=== PATIENT | male | born 1960 | race Hispanic/Latino ===

== ENCOUNTER 2019-03-25 13:33 | Outpatient (CLI) | payer BC ==
--- NOTE | 2019-03-25 13:48 | RAD ---
EXAM: 3 views of the left foot HISTORY: Foot pain COMPARISON: None FINDINGS: 3 views of the left foot shows no evidence of acute fracture or dislocation. No soft tissue swelling is seen. No degenerative changes are present. IMPRESSION: No evidence of acute osseous abnormality.
== END 2019-03-25 13:34 | disposition home or self-care (01) ==
LOC: BICRAD 13:33
PROVIDERS: ATTEND Family Medicine
DX: S99.912A Unspecified injury of left ankle, initial encounter (principal)

== ENCOUNTER 2020-06-19 13:29 | Outpatient (CLI) | payer MEDICARE ==
--- NOTE | 2020-06-19 14:05 | RAD ---
Exam:Left foot 3 views HISTORY: Pain COMPARISON: 03/25/2019 FINDINGS: No symmetric and soft tissue swelling. Hypertrophy of the calcaneus at the plantar aponeuro sis and Achilles tendon insertion sites. Lisfranc alignment is maintained. No fracture, cortical irregularity or periosteal reaction. Mild deg enerative change in the first metatarsal phalangeal joint space. IMPRESSION: No fracture. Chronic changes as described above.
--- NOTE | 2020-06-19 14:10 | RAD ---
LEFT ANKLE 3 VIEWS: Date: 06/19/2020 HISTORY: Ankle pain. FINDINGS: Mild soft tissue swelling at the ankle. There are degenerative changes with spurring at the tibiotala r joint and spurring from both malleoli. No evidence of acute fracture. IMPRESSION: Degenerative changes at the ankle. No evidence of fracture. POS: [facility]
== END 2020-06-19 13:30 | disposition home or self-care (01) ==
LOC: BICRAD 13:29
PROVIDERS: ATTEND Podiatrist
DX: M79.672 Pain in left foot (principal); M25.572 Pain in left ankle and joints of left foot; M19.072 Primary osteoarthritis, left ankle and foot; M89.372 Hypertrophy of bone, left ankle and foot

== ENCOUNTER 2020-11-21 00:16 | Inpatient (IN) | payer MEDICARE ==
[2020-11-21 01:05] LABS: #Basophils 0.1 thou/uL (0.0-0.2); #Eosinphils 0.1 thou/uL (0.0-0.7); #Monocytes 0.9 thou/uL (0.11-0.59); #Neutrophils 7.4 thou/uL (1.40-6.50); %Basophils 0.9 % (0.0-1.0); %Eosinophils 0.9 % (0.0-10.0); %Lymphocytes 31.9 % (21.0-51.0); %Monocytes 6.9 % (0.0-10.0); %Neutrophils 59.4 % (42.0-75.0); Hemoglobin 13.5 g/dL (14.0-18.0); Mean Corpuscular HGB CONC 34.6 g/dL (32.0-36.0); Mean Corpuscular Volume 86.6 fL (78.0-98.0); Mean Platelet Volume 6.9 fL (7.4-10.4); Platelet Count 341 thou/uL (130-400); RBC Distribution Width 12.4 % (11.5-14.5); Red Blood Cell (RBC) Count 4.52 mill/uL (4.70-6.10); White Blood Cell (WBC) Count 12.4 thou/uL (4.8-10.8)
[2020-11-21 01:22] LABS: ALT (SGPT) 23 U/L (8-55); AST (SGOT) 35 U/L (5-34); Albumin 4.5 g/dL (3.4-4.8); Alkaline Phosphatase 81 U/L (40-110); Anion Gap 18 mmol/L (10-20); BUN (Urea Nitrogen) 10 mg/dL (8.4-25.7); Bilirubin, Total 0.3 mg/dL (0.2-1.2); Calc. Creatinine Clearance 0 mL/min (70-130); Calcium 8.8 mg/dL (7.8-10.44); Carbon Dioxide 19 mmol/L (23-31); Chloride 87 mmol/L (98-107); Globulin 3.2 g/dL (2.4-3.5); Glucose 166 mg/dL (80-115); Potassium 3.8 mmol/L (3.5-5.1); Protein, Total 7.7 g/dL (5.8-8.1); Sodium 120 mmol/L (136-145)
[2020-11-21 01:27] LABS: Acetaminophen Less than 6.0 mcg/mL (10.0-30.0); Alcohol Less than 10 mg/dL (Less than 10); Salicylate Less than 8.0 mg/dL (15.0-30.0)
[2020-11-21] MEDS ORDERED: Lorazepam 1 MG TAB ONE (01:29)
[2020-11-21] MEDS ORDERED: Thiamine HCl 200 MG/2 ML VIAL SLOW IVP SCH (02:30)
[2020-11-21] MEDS ORDERED: Folic Acid 1 MG, Multivitamins, Adult 10 ML in Dextrose 5 %-0.45 % NaCl 1,000 ML IV SCH (02:30)
[2020-11-21] MEDS ORDERED: HYDROcodone/Acetaminophen 5/325 mg Tablet ONE (03:01)
[2020-11-21] MEDS ORDERED: HumaLOG 300 UNITS/3 ML VIAL SC PRN (03:26)
[2020-11-21] MEDS ORDERED: Dextrose 50% Abboject 50 ML SYRINGE SLOW IVP PRN (03:26)
[2020-11-21] MEDS ORDERED: Dextrose 5% in Water 1,000 ML IV PRN (03:26)
[2020-11-21] MEDS ORDERED: Lorazepam 2 MG/ML VIAL ONE ×2 (03:50→06:09)
[2020-11-21 05:23] VITALS: BMI 25.8
[2020-11-21] MEDS ORDERED: Haloperidol Lactate 5 MG/ML VIAL ONE ×2 (05:39→06:42)
[2020-11-21 08:21] LABS: Anion Gap 17 mmol/L (10-20); BUN (Urea Nitrogen) 9 mg/dL (8.4-25.7); Calc. Creatinine Clearance 120 mL/min (70-130); Calcium 8.1 mg/dL (7.8-10.44); Carbon Dioxide 18 mmol/L (23-31); Chloride 87 mmol/L (98-107); Glucose 121 mg/dL (80-115); Potassium 3.3 mmol/L (3.5-5.1)
[2020-11-21 08:36] LABS: Sodium 119 mmol/L (136-145)
[2020-11-21 08:44] LABS: Bacteria/HPF None Seen HPF (None Seen); Bilirubin Negative (Negative); Blood, Urine Negative (Negative); Clarity Clear (Clear); Glucose, Urine (Dipstick) 50 mg/dL (Negative); Ketone, Urine Negative (Negative); Leukocyte Negative Leu/uL (Negative); Nitrite Negative (Negative); Protein, Urine (Dipstick) 10 mg/dL (Neg-Trace); RBC/HPF 0-3 HPF (0-3); Squamous Epithelial 0-3 HPF (0-3); Urobilinogen Normal mg/dL (Less than 2); WBC/HPF 0-3 HPF (0-3); pH, Urine 5.5 (5.0-9.0)
[2020-11-21] MEDS: metFORMIN 500 MG TAB PO SCH ×2 (09:00→17:09)
[2020-11-21] MEDS: Amlodipine 10 MG TAB PO SCH (09:00)
[2020-11-21] MEDS ORDERED: Citalopram 20 MG TAB PO SCH (09:00)
[2020-11-21] MEDS: Cholecalciferol 1,000 UNITS (25 MCG) TAB PO SCH (09:01)
[2020-11-21] MEDS: Gabapentin 300 MG CAP PO SCH (09:01)
[2020-11-21] MEDS: Cyanocobalamin (Vitamin B-12) 1,000 MCG TAB PO SCH (09:01)
[2020-11-21] MEDS: Folic Acid 1 MG TAB PO SCH (09:01)
[2020-11-21] MEDS: Simvastatin 10 MG TAB PO SCH (09:02)
[2020-11-21] MEDS: Multivit, Therapeutic 1 TAB PO SCH (09:02)
[2020-11-21] MEDS ORDERED: Sodium Chloride 0.9% 1,000 ML IV SCH (09:15)
[2020-11-21 12:26] LABS: Anion Gap 11 mmol/L (10-20); BUN (Urea Nitrogen) 7 mg/dL (8.4-25.7); Calc. Creatinine Clearance 113 mL/min (70-130); Calcium 9.3 mg/dL (7.8-10.44); Carbon Dioxide 27 mmol/L (23-31); Chloride 85 mmol/L (98-107); Glucose 103 mg/dL (80-115); Potassium 3.6 mmol/L (3.5-5.1)
[2020-11-21 12:32] LABS: Sodium 119 mmol/L (136-145)
[2020-11-21] MEDS: Sodium Chloride 0.9% 1,000 ML IV SCH ×2 (13:30→21:18)
[2020-11-21 13:42] LABS: SARS-CoV-2 PCR by NAA Not Detected (NotDetected)
[2020-11-21 18:25] LABS: Anion Gap 13 mmol/L (10-20); BUN (Urea Nitrogen) 6 mg/dL (8.4-25.7); Calc. Creatinine Clearance 130 mL/min (70-130); Calcium 8.1 mg/dL (7.8-10.44); Carbon Dioxide 22 mmol/L (23-31); Chloride 89 mmol/L (98-107); Glucose 97 mg/dL (80-115); Potassium 3.7 mmol/L (3.5-5.1); Sodium 120 mmol/L (136-145)
[2020-11-21 22:22] LABS: Amphetamine Not Detected (NotDetected); Barbiturates Screen Not Detected (NotDetected); Benzodiazepine Screen Detected (NotDetected); Cocaine Metabolite Screen Not Detected (NotDetected); Medtox Control Line Valid? VALID (VALID); Medtox Reader # READER 4; Methadone Not Detected (NotDetected); Methamphetamine Not Detected (NotDetected); Opiate Screen Detected (NotDetected); Oxycodone Screen Not Detected (NotDetected); Phencyclidine (PCP) Not Detected (NotDetected); THC/Cannabinoid Screen Not Detected (NotDetected); Tricyclic Screen Detected (NotDetected)
[2020-11-22 00:41] LABS: Anion Gap 13 mmol/L (10-20); BUN (Urea Nitrogen) 6 mg/dL (8.4-25.7); Calc. Creatinine Clearance 130 mL/min (70-130); Calcium 8.5 mg/dL (7.8-10.44); Carbon Dioxide 23 mmol/L (23-31); Chloride 92 mmol/L (98-107); Glucose 95 mg/dL (80-115); Potassium 3.7 mmol/L (3.5-5.1); Sodium 124 mmol/L (136-145)
[2020-11-22] MEDS: Lorazepam 2 MG/ML VIAL SLOW IVP PRN ×2 (02:15→21:34)
[2020-11-22] MEDS: Sodium Chloride 0.9% 1,000 ML IV SCH ×4 (02:15→20:48)
[2020-11-22 05:20] LABS: #Eosinphils 0.1 thou/uL (0.0-0.7); #Lymphocytes 3.6 thou/uL (1.20-3.40); #Monocytes 0.7 thou/uL (0.11-0.59); #Neutrophils 3.7 thou/uL (1.40-6.50); %Basophils 0.5 % (0.0-1.0); %Eosinophils 1.5 % (0.0-10.0); %Lymphocytes 44.1 % (21.0-51.0); %Monocytes 8.1 % (0.0-10.0); %Neutrophils 45.8 % (42.0-75.0); Hemoglobin 12.2 g/dL (14.0-18.0); Mean Corpuscular HGB CONC 34.1 g/dL (32.0-36.0); Mean Corpuscular Hemoglobin 29.5 pg (27.0-31.0); Mean Corpuscular Volume 86.4 fL (78.0-98.0); Platelet Count 304 thou/uL (130-400); RBC Distribution Width 12.4 % (11.5-14.5); Red Blood Cell (RBC) Count 4.13 mill/uL (4.70-6.10); White Blood Cell (WBC) Count 8.2 thou/uL (4.8-10.8)
[2020-11-22] MEDS: metFORMIN 500 MG TAB PO SCH ×2 (09:01→16:44)
[2020-11-22] MEDS: Folic Acid 1 MG TAB PO SCH (09:01)
[2020-11-22] MEDS: Multivit, Therapeutic 1 TAB PO SCH (09:01)
[2020-11-22] MEDS: Cyanocobalamin (Vitamin B-12) 1,000 MCG TAB PO SCH (09:01)
[2020-11-22] MEDS: Gabapentin 300 MG CAP PO SCH (09:01)
[2020-11-22] MEDS: Amlodipine 10 MG TAB PO SCH (09:01)
[2020-11-22] MEDS: Cholecalciferol 1,000 UNITS (25 MCG) TAB PO SCH (09:01)
[2020-11-22] MEDS: Simvastatin 10 MG TAB PO SCH (09:02)
[2020-11-22 15:24] LABS: Anion Gap 13 mmol/L (10-20); BUN (Urea Nitrogen) 4 mg/dL (8.4-25.7); Calc. Creatinine Clearance 123 mL/min (70-130); Calcium 8.3 mg/dL (7.8-10.44); Carbon Dioxide 21 mmol/L (23-31); Chloride 92 mmol/L (98-107); Glucose 149 mg/dL (80-115); Sodium 122 mmol/L (136-145)
[2020-11-22] MEDS ORDERED: Sodium Chloride 1 GM TAB PO SCH (18:00)
[2020-11-23] MEDS ORDERED: Lorazepam 2 MG/ML VIAL SLOW IVP SCH (01:15)
[2020-11-23] MEDS ORDERED: Pantoprazole 40 MG VIAL IVP SCH (01:30)
[2020-11-23] MEDS: Sodium Chloride 0.9% 1,000 ML IV SCH (05:24)
[2020-11-23 07:02] LABS: Anion Gap 14 mmol/L (10-20); BUN (Urea Nitrogen) 4 mg/dL (8.4-25.7); Calc. Creatinine Clearance 131 mL/min (70-130); Calcium 8.4 mg/dL (7.8-10.44); Carbon Dioxide 20 mmol/L (23-31); Chloride 96 mmol/L (98-107); Glucose 94 mg/dL (80-115); Potassium 3.9 mmol/L (3.5-5.1); Sodium 126 mmol/L (136-145)
[2020-11-23] MEDS: Simvastatin 10 MG TAB PO SCH (08:41)
[2020-11-23] MEDS: Gabapentin 300 MG CAP PO SCH (08:41)
[2020-11-23] MEDS: Amlodipine 10 MG TAB PO SCH (08:42)
[2020-11-23] MEDS: Folic Acid 1 MG TAB PO SCH (08:43)
[2020-11-23] MEDS: Cyanocobalamin (Vitamin B-12) 1,000 MCG TAB PO SCH (08:43)
[2020-11-23] MEDS: metFORMIN 500 MG TAB PO SCH ×2 (08:43→16:46)
[2020-11-23] MEDS: Multivit, Therapeutic 1 TAB PO SCH (08:43)
[2020-11-23] MEDS: Cholecalciferol 1,000 UNITS (25 MCG) TAB PO SCH (08:43)
[2020-11-23] MEDS: Lorazepam 2 MG/ML VIAL SLOW IVP PRN ×2 (10:18→15:46)
[2020-11-23] MEDS ORDERED: Thiamine 100 MG TAB PO SCH (16:15)
[2020-11-23] MEDS: Diazepam 5 MG TAB PO PRN ×2 (16:46→22:07)
[2020-11-23 16:53] LABS: Anion Gap 18 mmol/L (10-20); BUN (Urea Nitrogen) 4 mg/dL (8.4-25.7); Calc. Creatinine Clearance 120 mL/min (70-130); Carbon Dioxide 17 mmol/L (23-31); Chloride 92 mmol/L (98-107); Glucose 171 mg/dL (80-115); Potassium 3.7 mmol/L (3.5-5.1); Sodium 123 mmol/L (136-145)
[2020-11-23] MEDS ORDERED: Sodium Chloride 1 GM TAB PO SCH (17:15)
[2020-11-23] MEDS: Acetaminophen 325 MG TAB PO PRN (22:07)
[2020-11-24] MEDS ORDERED: Nicotine 21 MG PATCH TD SCH (01:15)
[2020-11-24] MEDS: Diazepam 5 MG TAB PO PRN ×3 (04:34→21:56)
[2020-11-24 07:51] LABS: Anion Gap 18 mmol/L (10-20); BUN (Urea Nitrogen) 4 mg/dL (8.4-25.7); Calc. Creatinine Clearance 120 mL/min (70-130); Calcium 9.2 mg/dL (7.8-10.44); Carbon Dioxide 21 mmol/L (23-31); Chloride 86 mmol/L (98-107); Glucose 127 mg/dL (80-115); Potassium 3.9 mmol/L (3.5-5.1); Sodium 121 mmol/L (136-145)
[2020-11-24] MEDS: Amlodipine 10 MG TAB PO SCH (08:34)
[2020-11-24] MEDS: metFORMIN 500 MG TAB PO SCH ×2 (08:34→18:57)
[2020-11-24] MEDS: Cyanocobalamin (Vitamin B-12) 1,000 MCG TAB PO SCH (08:34)
[2020-11-24] MEDS: Gabapentin 300 MG CAP PO SCH (08:35)
[2020-11-24] MEDS: Multivit, Therapeutic 1 TAB PO SCH (08:35)
[2020-11-24] MEDS: Folic Acid 1 MG TAB PO SCH (08:35)
[2020-11-24] MEDS: Thiamine 100 MG TAB PO SCH (08:35)
[2020-11-24] MEDS: Cholecalciferol 1,000 UNITS (25 MCG) TAB PO SCH (08:35)
[2020-11-24] MEDS: Acetaminophen 325 MG TAB PO PRN (08:36)
[2020-11-24] MEDS: Sodium Chloride 1 GM TAB PO SCH ×3 (09:50→21:56)
[2020-11-24 11:23] LABS: Anion Gap 13 mmol/L (10-20); BUN (Urea Nitrogen) 4 mg/dL (8.4-25.7); Calc. Creatinine Clearance 131 mL/min (70-130); Calcium 9.3 mg/dL (7.8-10.44); Carbon Dioxide 24 mmol/L (23-31); Chloride 86 mmol/L (98-107); Glucose 121 mg/dL (80-115); Magnesium 1.2 mg/dL (1.6-2.6); Potassium 3.4 mmol/L (3.5-5.1); Sodium 120 mmol/L (136-145)
[2020-11-24] MEDS ORDERED: Tolvaptan 15 MG TAB PO SCH (11:30)
[2020-11-24] MEDS ORDERED: TOLVAPTAN 30 MG TAB PO SCH (12:15)
[2020-11-24] MEDS: Simvastatin 10 MG TAB PO SCH (12:15)
[2020-11-24] MEDS ORDERED: Haloperidol Lactate 5 MG/ML VIAL IM SCH (14:30)
[2020-11-24] MEDS ORDERED: Haloperidol Lactate 5 MG/ML VIAL IM PRN (15:32)
[2020-11-24 17:41] LABS: Anion Gap 13 mmol/L (10-20); BUN (Urea Nitrogen) 4 mg/dL (8.4-25.7); Calc. Creatinine Clearance 123 mL/min (70-130); Calcium 9.3 mg/dL (7.8-10.44); Carbon Dioxide 26 mmol/L (23-31); Chloride 90 mmol/L (98-107); Glucose 144 mg/dL (80-115); Potassium 3.2 mmol/L (3.5-5.1); Sodium 126 mmol/L (136-145)
[2020-11-24 21:41] LABS: Anion Gap 12 mmol/L (10-20); BUN (Urea Nitrogen) 5 mg/dL (8.4-25.7); Calc. Creatinine Clearance 117 mL/min (70-130); Calcium 9.5 mg/dL (7.8-10.44); Carbon Dioxide 26 mmol/L (23-31); Chloride 93 mmol/L (98-107); Glucose 179 mg/dL (80-115); Potassium 3.4 mmol/L (3.5-5.1); Sodium 128 mmol/L (136-145)
[2020-11-24] MEDS: Magnesium Chloride 64 MG TAB PO SCH (21:56)
[2020-11-25 00:16] LABS: Anion Gap 15 mmol/L (10-20); BUN (Urea Nitrogen) 5 mg/dL (8.4-25.7); Calc. Creatinine Clearance 115 mL/min (70-130); Calcium 9.7 mg/dL (7.8-10.44); Carbon Dioxide 25 mmol/L (23-31); Chloride 94 mmol/L (98-107); Glucose 124 mg/dL (80-115); Potassium 3.8 mmol/L (3.5-5.1); Sodium 130 mmol/L (136-145)
[2020-11-25] MEDS ORDERED: Dextrose 5% in Water 1,000 ML IV SCH (00:30)
[2020-11-25 07:02] LABS: Anion Gap 18 mmol/L (10-20); BUN (Urea Nitrogen) 7 mg/dL (8.4-25.7); Calc. Creatinine Clearance 112 mL/min (70-130); Calcium 9.8 mg/dL (7.8-10.44); Carbon Dioxide 22 mmol/L (23-31); Chloride 98 mmol/L (98-107); Glucose 126 mg/dL (80-115); Magnesium 1.6 mg/dL (1.6-2.6); Potassium 3.9 mmol/L (3.5-5.1); Sodium 134 mmol/L (136-145)
[2020-11-25] MEDS: Magnesium Chloride 64 MG TAB PO SCH ×2 (08:18→22:29)
[2020-11-25] MEDS: Gabapentin 300 MG CAP PO SCH (08:18)
[2020-11-25] MEDS: Cyanocobalamin (Vitamin B-12) 1,000 MCG TAB PO SCH (08:19)
[2020-11-25] MEDS: Simvastatin 10 MG TAB PO SCH (08:19)
[2020-11-25] MEDS: Thiamine 100 MG TAB PO SCH (08:19)
[2020-11-25] MEDS: Cholecalciferol 1,000 UNITS (25 MCG) TAB PO SCH (08:19)
[2020-11-25] MEDS: Folic Acid 1 MG TAB PO SCH (08:19)
[2020-11-25] MEDS: Amlodipine 10 MG TAB PO SCH (08:19)
[2020-11-25] MEDS: Sodium Chloride 1 GM TAB PO SCH ×3 (08:19→22:29)
[2020-11-25] MEDS: metFORMIN 500 MG TAB PO SCH ×2 (08:19→15:44)
[2020-11-25] MEDS: Multivit, Therapeutic 1 TAB PO SCH (08:19)
[2020-11-25] MEDS: Dextrose 5% in Water 1,000 ML IV SCH ×4 (08:55→22:30)
[2020-11-25] MEDS ORDERED: Haloperidol Lactate 5 MG/ML VIAL SLOW IVP PRN (09:40)
[2020-11-25] MEDS ORDERED: Lorazepam 2 MG/ML VIAL SLOW IVP PRN (09:40)
[2020-11-25] MEDS ORDERED: Benztropine Mesylate 2 MG/2 ML VIAL IM SCH (09:45)
[2020-11-25] MEDS ORDERED: Benztropine Mesylate 2 MG/2 ML VIAL IM PRN (10:01)
[2020-11-25 11:39] LABS: Anion Gap 18 mmol/L (10-20); BUN (Urea Nitrogen) 6 mg/dL (8.4-25.7); Calc. Creatinine Clearance 102 mL/min (70-130); Calcium 10.4 mg/dL (7.8-10.44); Carbon Dioxide 20 mmol/L (23-31); Chloride 100 mmol/L (98-107); Glucose 120 mg/dL (80-115); Sodium 134 mmol/L (136-145)
[2020-11-25 17:27] LABS: ALT (SGPT) 21 U/L (8-55); AST (SGOT) 22 U/L (5-34); Albumin 4.7 g/dL (3.4-4.8); Alkaline Phosphatase 96 U/L (40-110); Anion Gap 18 mmol/L (10-20); BUN (Urea Nitrogen) 8 mg/dL (8.4-25.7); Bilirubin, Total 0.3 mg/dL (0.2-1.2); Calc. Creatinine Clearance 98 mL/min (70-130); Calcium 11.1 mg/dL (7.8-10.44); Carbon Dioxide 23 mmol/L (23-31); Chloride 101 mmol/L (98-107); Globulin 3.4 g/dL (2.4-3.5); Glucose 159 mg/dL (80-115); Potassium 4.2 mmol/L (3.5-5.1); Protein, Total 8.1 g/dL (5.8-8.1); Sodium 138 mmol/L (136-145)
[2020-11-25] MEDS: Diazepam 5 MG TAB PO PRN (23:06)
[2020-11-26] MEDS: Dextrose 5% in Water 1,000 ML IV SCH ×2 (00:05→05:57)
[2020-11-26] MEDS: Acetaminophen 325 MG TAB PO PRN ×4 (00:42→21:03)
[2020-11-26] MEDS: HumaLOG 300 UNITS/3 ML VIAL SC PRN (06:02)
[2020-11-26 06:21] LABS: Anion Gap 15 mmol/L (10-20); BUN (Urea Nitrogen) 6 mg/dL (8.4-25.7); Calc. Creatinine Clearance 110 mL/min (70-130); Calcium 9.8 mg/dL (7.8-10.44); Carbon Dioxide 25 mmol/L (23-31); Chloride 96 mmol/L (98-107); Glucose 182 mg/dL (80-115); Sodium 132 mmol/L (136-145)
[2020-11-26] MEDS: Folic Acid 1 MG TAB PO SCH (08:25)
[2020-11-26] MEDS: metFORMIN 500 MG TAB PO SCH ×2 (08:25→15:48)
[2020-11-26] MEDS: Cyanocobalamin (Vitamin B-12) 1,000 MCG TAB PO SCH (08:25)
[2020-11-26] MEDS: Amlodipine 10 MG TAB PO SCH (08:25)
[2020-11-26] MEDS: Sodium Chloride 1 GM TAB PO SCH ×3 (08:25→20:54)
[2020-11-26] MEDS: Gabapentin 300 MG CAP PO SCH (08:25)
[2020-11-26] MEDS: Multivit, Therapeutic 1 TAB PO SCH (08:26)
[2020-11-26] MEDS: Simvastatin 10 MG TAB PO SCH (08:26)
[2020-11-26] MEDS: Thiamine 100 MG TAB PO SCH (08:26)
[2020-11-26] MEDS: Cholecalciferol 1,000 UNITS (25 MCG) TAB PO SCH (08:26)
[2020-11-26] MEDS: Magnesium Chloride 64 MG TAB PO SCH ×2 (08:26→20:54)
[2020-11-26] MEDS ORDERED: Senokot 8.6 MG TAB PO PRN (09:38)
[2020-11-26] MEDS: Polyethylene Glycol 3350 17 GM Packet PO SCH (09:54)
[2020-11-26] MEDS: Diazepam 5 MG TAB PO PRN (21:03)
[2020-11-27 08:09] LABS: Anion Gap 17 mmol/L (10-20); BUN (Urea Nitrogen) 7 mg/dL (8.4-25.7); Calc. Creatinine Clearance 111 mL/min (70-130); Calcium 9.6 mg/dL (7.8-10.44); Carbon Dioxide 26 mmol/L (23-31); Chloride 93 mmol/L (98-107); Glucose 108 mg/dL (80-115); Potassium 3.9 mmol/L (3.5-5.1); Sodium 132 mmol/L (136-145)
[2020-11-27] MEDS: Cholecalciferol 1,000 UNITS (25 MCG) TAB PO SCH (08:15)
[2020-11-27] MEDS: metFORMIN 500 MG TAB PO SCH ×2 (08:15→15:31)
[2020-11-27] MEDS: Thiamine 100 MG TAB PO SCH (08:15)
[2020-11-27] MEDS: Cyanocobalamin (Vitamin B-12) 1,000 MCG TAB PO SCH (08:16)
[2020-11-27] MEDS: Multivit, Therapeutic 1 TAB PO SCH (08:16)
[2020-11-27] MEDS: Gabapentin 300 MG CAP PO SCH (08:16)
[2020-11-27] MEDS: Amlodipine 10 MG TAB PO SCH (08:17)
[2020-11-27] MEDS: Polyethylene Glycol 3350 17 GM Packet PO SCH (08:17)
[2020-11-27] MEDS: Sodium Chloride 1 GM TAB PO SCH ×3 (08:17→20:18)
[2020-11-27] MEDS: Folic Acid 1 MG TAB PO SCH (08:17)
[2020-11-27] MEDS: Magnesium Chloride 64 MG TAB PO SCH ×2 (08:51→20:18)
[2020-11-27] MEDS: Acetaminophen 325 MG TAB PO PRN (08:51)
[2020-11-27] MEDS: Simvastatin 10 MG TAB PO SCH (08:51)
[2020-11-27] MEDS: Ibuprofen 600 MG TAB PO PRN (15:31)
[2020-11-27] MEDS: Diazepam 5 MG TAB PO PRN (20:18)
[2020-11-28] MEDS: Ibuprofen 600 MG TAB PO PRN (05:36)
[2020-11-28] MEDS: Magnesium Chloride 64 MG TAB PO SCH ×2 (08:55→21:07)
[2020-11-28] MEDS: Sodium Chloride 1 GM TAB PO SCH ×3 (08:56→21:07)
[2020-11-28] MEDS: Folic Acid 1 MG TAB PO SCH (08:56)
[2020-11-28] MEDS: metFORMIN 500 MG TAB PO SCH ×2 (08:56→17:35)
[2020-11-28] MEDS: Amlodipine 10 MG TAB PO SCH (08:56)
[2020-11-28] MEDS: Cholecalciferol 1,000 UNITS (25 MCG) TAB PO SCH (08:56)
[2020-11-28] MEDS: Cyanocobalamin (Vitamin B-12) 1,000 MCG TAB PO SCH (08:56)
[2020-11-28] MEDS: Thiamine 100 MG TAB PO SCH (08:56)
[2020-11-28] MEDS: Gabapentin 300 MG CAP PO SCH (08:56)
[2020-11-28] MEDS: Multivit, Therapeutic 1 TAB PO SCH (08:56)
[2020-11-28] MEDS: Simvastatin 10 MG TAB PO SCH (08:57)
[2020-11-28] MEDS: Polyethylene Glycol 3350 17 GM Packet PO SCH (09:00)
[2020-11-28] MEDS: Acetaminophen 325 MG TAB PO PRN (15:03)
[2020-11-28] MEDS: CeleCOXIB 100 MG CAP PO SCH (21:08)
[2020-11-28] MEDS: Gabapentin 100 MG CAP PO SCH (21:08)
[2020-11-29] MEDS ORDERED: Citalopram 20 MG TAB PO SCH (09:00)
[2020-11-29] MEDS: metFORMIN 500 MG TAB PO SCH ×3 (09:02→17:42)
[2020-11-29] MEDS: Simvastatin 10 MG TAB PO SCH (09:43)
[2020-11-29] MEDS: Gabapentin 100 MG CAP PO SCH (09:44)
[2020-11-29] MEDS: Folic Acid 1 MG TAB PO SCH (09:48)
[2020-11-29] MEDS: CeleCOXIB 100 MG CAP PO SCH (09:48)
[2020-11-29] MEDS: Cyanocobalamin (Vitamin B-12) 1,000 MCG TAB PO SCH (09:49)
[2020-11-29] MEDS: Thiamine 100 MG TAB PO SCH (09:49)
[2020-11-29] MEDS: Amlodipine 10 MG TAB PO SCH (09:49)
[2020-11-29] MEDS: Cholecalciferol 1,000 UNITS (25 MCG) TAB PO SCH (09:49)
[2020-11-29] MEDS: Multivit, Therapeutic 1 TAB PO SCH (09:50)
[2020-11-29] MEDS: Magnesium Chloride 64 MG TAB PO SCH (09:50)
[2020-11-29] MEDS: Sodium Chloride 1 GM TAB PO SCH ×2 (09:51→15:09)
[2020-11-29] MEDS: Polyethylene Glycol 3350 17 GM Packet PO SCH (09:52)
[2020-11-29 11:53] VITALS: TEMP 97.5
[2020-11-29] MEDS: HumaLOG 300 UNITS/3 ML VIAL SC PRN (12:32)
[2020-11-29] MEDS: Acetaminophen 325 MG TAB PO PRN (15:12)
[2020-11-29 15:44] LABS: Anion Gap 14 mmol/L (10-20); BUN (Urea Nitrogen) 8 mg/dL (8.4-25.7); Calc. Creatinine Clearance 113 mL/min (70-130); Calcium 9.1 mg/dL (7.8-10.44); Carbon Dioxide 24 mmol/L (23-31); Chloride 100 mmol/L (98-107); Glucose 142 mg/dL (80-115); Potassium 4.2 mmol/L (3.5-5.1); Sodium 134 mmol/L (136-145)
[2020-11-29 17:03] VITALS: BP 133/72
[2020-11-30] MEDS ORDERED: Citalopram 20 MG TAB PO SCH (09:00)
== END 2020-11-29 18:52 | disposition home or self-care (01) | DRG 643 ==
LOC: EEVIPCON 00:16 → ERS 00:16 → ERHOLD 02:35 → 2NO 16:26 → OBSVTOIN 11-22 16:19 → T4-A 11-22 19:33
PROVIDERS: ADMIT Emergency Medicine; ATTEND Family Medicine
DX: E22.2 Syndrome of inappropriate secretion of antidiuretic hormone (principal); G93.41 Metabolic encephalopathy; Z20.822 Contact with and (suspected) exposure to COVID-19; R45.851 Suicidal ideations; F23 Brief psychotic disorder; N18.1 Chronic kidney disease, stage 1; F32.9 Major depressive disorder, single episode, unspecified; E11.22 Type 2 diabetes mellitus with diabetic chronic kidney disease; I12.9 Hypertensive chronic kidney disease with stage 1 through stage 4 chronic kidney disease, or unspecified chronic kidney disease; E78.5 Hyperlipidemia, unspecified; K74.60 Unspecified cirrhosis of liver; G89.29 Other chronic pain; E78.00 Pure hypercholesterolemia, unspecified; F17.210 Nicotine dependence, cigarettes, uncomplicated; F10.20 Alcohol dependence, uncomplicated; F41.9 Anxiety disorder, unspecified; Z87.820 Personal history of traumatic brain injury; Z88.8 Allergy status to other drugs, medicaments and biological substances; Z79.84 Long term (current) use of oral hypoglycemic drugs; Z79.899 Other long term (current) drug therapy; Z86.19 Personal history of other infectious and parasitic diseases
CPT/HCPCS: 36415; 36416; 70450; 71045; 80048; 80053; 80306; 80307; 81001; 82140; 83735; 83930; 83935; 84300; 84443; 84550; 85025; 87635; 93005; 95816; 95957; 96365; 96366; 96372; 96375; 96376; C9113; G0378; J1630; J1815; J2060; J3411; J7042; U0003; U0005

== ENCOUNTER 2021-05-04 10:31 | Outpatient (CLI) | payer MEDICARE | END 2021-05-04 10:32 | disposition home or self-care (01) | LOC: BICULT 10:31 | PROVIDERS: ATTEND Family Medicine | DX: R10.84 Generalized abdominal pain (principal) | CPT/HCPCS: 93975 ==

== ENCOUNTER 2023-05-01 15:12 | Emergency (ER) | payer MEDICARE ==
[2023-05-01 16:31] LABS: #Monocytes 0.9 thou/uL (0.11-0.59); %Basophils 0.5 % (0.0-1.0); %Lymphocytes 29.8 % (21.0-51.0); %Monocytes 16.2 % (0.0-10.0); %Neutrophils 53.3 % (42.0-75.0); Hematocrit 36.1 % (42.0-52.0); Mean Corpuscular HGB CONC 33.2 g/dL (32.0-36.0); Mean Corpuscular Hemoglobin 25.5 pg (27.0-31.0); Mean Corpuscular Volume 76.6 fl (78.0-98.0); Mean Platelet Volume 9.1 fL (7.4-10.4); Platelet Count 312 10x3/uL (130-400); RBC Distribution Width 16.2 % (11.5-14.5); Red Blood Cell (RBC) Count 4.71 mill/uL (4.70-6.10); White Blood Cell (WBC) Count 5.5 10x3/uL (4.8-10.8)
[2023-05-01] MEDS ORDERED: Ketorolac Tromethamine 30 MG/ML VIAL ONE (16:35)
[2023-05-01 16:58] LABS: ALT (SGPT) 15 U/L (8-55); AST (SGOT) 19 U/L (5-34); Albumin 4.7 g/dL (3.4-4.8); Alkaline Phosphatase 82 U/L (40-110); Anion Gap 16 mmol/L (10-20); BUN (Urea Nitrogen) 7 mg/dL (8.4-25.7); Bilirubin, Total 0.2 mg/dL (0.2-1.2); Calc. Creatinine Clearance 0 mL/min (70-130); Calcium 9.7 mg/dL (7.8-10.44); Carbon Dioxide 21 mmol/L (23-31); Chloride 94 mmol/L (98-107); Estimated GFR 96; Globulin 3.5 g/dL (2.4-3.5); Glucose 120 mg/dL (80-115); Potassium 4.3 mmol/L (3.5-5.1); Protein, Total 8.2 g/dL (5.8-8.1); Sodium 127 mmol/L (136-145)
[2023-05-01 17:13] LABS: Bacteria/HPF None Seen HPF (None Seen); Bilirubin Negative (Negative); Blood, Urine Negative (Negative); CAUTI Indications for Culture Dysuria,urgency,freq; Clarity Clear (Clear); Glucose, Urine (Dipstick) Normal (Negative); Ketone, Urine Negative (Negative); Leukocyte Negative Leu/uL (Negative); Nitrite Negative (Negative); Protein, Urine (Dipstick) 10 mg/dL (Neg-Trace); RBC/HPF None Seen HPF (0-3); Specific Gravity, Urine 1.021 (1.002-1.036); Squamous Epithelial None Seen HPF (0-3); Urobilinogen Normal mg/dL (Less than 2); WBC/HPF None Seen HPF (0-3); pH, Urine 6.5 (5.0-9.0)
[2023-05-01 17:16] LABS: Urine Culture Reflex No No
[2023-05-01] MEDS ORDERED: Methocarbamol 1 GM/10 ML VIAL IM SCH (18:15)
== END 2023-05-01 18:32 | disposition home or self-care (01) ==
LOC: ERS 15:12
DX: M62.838 Other muscle spasm (principal); E87.1 Hypo-osmolality and hyponatremia; E11.9 Type 2 diabetes mellitus without complications; E78.00 Pure hypercholesterolemia, unspecified; I10 Essential (primary) hypertension; F17.210 Nicotine dependence, cigarettes, uncomplicated
CPT/HCPCS: 74176; 80053; 81001; 83605; 85025; 87086; 96361; 96374; J1885; J2800